=== PATIENT | female | born 1955 | race Caucasian/White ===

== ENCOUNTER 2017-03-06 19:06 | Outpatient (CLI) | payer OTHER | END 2017-03-06 19:07 | disposition short-term general hospital (02) | LOC: EMS 19:06 | PROVIDERS: ATTEND Surgery | DX: I49.9 Cardiac arrhythmia, unspecified (principal) | CPT/HCPCS: A0425; A0427 ==

== ENCOUNTER 2020-04-21 13:37 | Outpatient (CLI) | payer MEDICARE, OTHER | END 2020-04-21 13:38 | disposition home or self-care (01) | LOC: LAB 13:37 | PROVIDERS: ATTEND Nurse Practitioner Family | DX: Z01.812 Encounter for preprocedural laboratory examination (principal); Z20.828 Contact with and (suspected) exposure to other viral communicable diseases ==

== ENCOUNTER 2022-06-10 08:00 | Outpatient (CLI) | payer MEDICARE, OTHER ==
--- NOTE | 2022-06-10 16:44 | XRAY Report ---
PROCEDURE: Elbow 2 View LT INDICATIONS: L ELBOW PX AFTER A FALL TECHNIQUE: 2 views of the elbow were acquired. COMPARISON: None FINDINGS: Bones: No fractures or dislocations. No suspicious bony lesions. Soft tissues: No elbow joint effusion. No suspicious soft tissue calcifications. IMPRESSION: No acute fracture. No osseous lesion. If symptoms and/or clinical suspicion for pathology continue, f urther assessment with repeat plain films, or advanced imaging (e.g., CT, MRI, or bone scan) is recom mended for further assessment. Reviewed by: Fanny Capone MD on 06/10/2022 4:43 PM PDT Approved by: Fanny Capone MD on 06/10/2022 4:43 PM PDT Station ID: [id number]
--- NOTE | 2022-06-10 17:17 | XRAY Report ---
PROCEDURE: Hip w/Pelvis 1V LT INDICATIONS: L HIP PX AFTER A FALL TECHNIQUE: AP pelvis with lateral view(s) of the left hip(s). COMPARISON: None. FINDINGS: Bones: No fractures or dislocations. Pelvic ring appears intact. No suspicious bony lesions. Post operative changes of pedicular screw and charlene fixation in the lower lumbar spine. Soft tissues: The visualized bowel gas pattern is normal. No suspicious soft tissue calcifications. IMPRESSION: No acute abnormality of the pelvis or left hip. Reviewed by: Fernandez Hernandez on 06/10/2022 5:16 PM PDT Approved by: Fernandez Hernandez on 06/10/2022 5:16 PM PDT Station ID: [id number]
--- NOTE | 2022-06-10 17:36 | XRAY Report ---
PROCEDURE: Hand 3 View LT INDICATIONS: L HAND PX AFTER A FALL TECHNIQUE: 3 views of the hand(s) acquired. COMPARISON: None FINDINGS: Bones: Acute minimally displaced oblique fracture of the distal fifth metacarpal. No definite involve ment of the MCP joint identified but this is difficult to exclude. No suspicious bony lesions. Firs t CMC joint degenerative changes present. Soft tissues: No suspicious soft tissue calcifications. IMPRESSION: Acute minimally displaced fracture of the distal fifth metacarpal. Reviewed by: Feliz Santiago MD on 06/10/2022 5:35 PM PDT Approved by: Feliz Santiago MD on 06/10/2022 5:35 PM PDT Station ID: [id number]
== END 2022-06-10 23:59 | disposition home or self-care (01) ==
LOC: DI.N 08:00
PROVIDERS: ATTEND Registered Nurse
DX: M25.552 Pain in left hip (principal); M25.522 Pain in left elbow; S62.397A Other fracture of fifth metacarpal bone, left hand, initial encounter for closed fracture